=== PATIENT | female | born 1980 | race Hispanic/Latino ===

== ENCOUNTER 2018-11-27 06:09 | Emergency (ER) | payer SELFPAY ==
[2018-11-27 07:15] LABS: #Eosinphils 0.1 thou/uL (0.0-0.7); #Lymphocytes 1.9 thou/uL (1.20-3.40); #Monocytes 0.3 thou/uL (0.11-0.59); #Neutrophils 4.1 thou/uL (1.40-6.50); %Basophils 0.4 % (0.0-1.0); %Lymphocytes 29.3 % (21.0-51.0); %Neutrophils 64.2 % (42.0-75.0); Hemoglobin 13.7 g/dL (12.0-16.0); Mean Corpuscular HGB CONC 32.8 g/dL (32.0-36.0); Mean Corpuscular Hemoglobin 27.4 pg (27.0-31.0); Mean Corpuscular Volume 83.7 fL (78.0-98.0); Mean Platelet Volume 7.1 fL (7.4-10.4); Platelet Count 325 thou/uL (130-400); RBC Distribution Width 11.7 % (11.5-14.5); Red Blood Cell (RBC) Count 4.98 mill/uL (4.20-5.40); White Blood Cell (WBC) Count 6.3 thou/uL (4.8-10.8)
[2018-11-27 07:18] LABS: Bilirubin Negative (Negative); Blood, Urine Trace (Negative); Clarity CLEAR (Clear); Glucose, Urine (Dipstick) Negative (Negative); Leukocyte Negative (Negative); Nitrite Negative (Negative); Protein, Urine (Dipstick) Negative (Neg-Trace); Specific Gravity, Urine 1.004 (1.002-1.036); Urobilinogen 0.2 mg/dL (0.2-1.0)
[2018-11-27 07:20] LABS: Bacteria/HPF None Seen HPF (None Seen); Hyaline Casts/LPF 0-3 HYALINE CAST LPF (0-3 Hyaline); Pathc Cast-AUWi Flag 0.14 (0-2.49); Pregnancy Test - Urine (BHCG) Negative (Negative); Pregu Control Background? CLEAR/WHITE (CLR/WHITE); Pregu Control Bar Appear? YES (CONTROL BAR); RBC/HPF 0-3 HPF (0-3); Specific Gravity 1.004 (1.002-1.036); Squamous Epithelial 0-3 HPF (0-3); WBC/HPF None Seen HPF (0-3)
[2018-11-27 07:39] LABS: ALT (SGPT) 32 U/L (8-55); AST (SGOT) 27 U/L (5-34); Alkaline Phosphatase 73 U/L (40-150); Anion Gap 13 mmol/L (10-20); BUN (Urea Nitrogen) 5 mg/dL (7.0-18.7); Bilirubin, Total 0.5 mg/dL (0.2-1.2); Calc. Creatinine Clearance 0 mL/min (70-130); Calcium 10.5 mg/dL (7.8-10.44); Carbon Dioxide 26 mmol/L (22-29); Chloride 103 mmol/L (98-107); Estimated GFR-MDRD 85; Globulin 3.8 g/dL (2.4-3.5); Glucose 92 mg/dL (70-105); Lipase 23 U/L (8-78); Potassium 3.6 mmol/L (3.5-5.1); Protein, Total 8.8 g/dL (6.0-8.3); Sodium 138 mmol/L (136-145)
[2018-11-27] MEDS ORDERED: Dicyclomine 20 MG TAB ONE (08:42)
[2018-11-27] MEDS ORDERED: Ketorolac Tromethamine 30 MG/ML VIAL ONE (08:43)
[2018-11-27] MEDS ORDERED: Ondansetron PF 4 MG/2 ML Vial ONE (08:43)
--- NOTE | 2018-11-27 10:38 | CT ---
CT OF THE ABDOMEN AND PELVIS WITH IV CONTRAST: Date: 11/27/18 INDICATION: Right lower quadrant abdominal pain for 1 month, worsened last night. FINDINGS: Small calcified granuloma seen within the right lower lobe. There is fatty infiltration of the liver. The pancreas, adrenal glands, and spleen appear within normal limits. Kidneys are unremarkable appear ing. No free fluid or lymphadenopathy is evident. The appendix is in the right lower quadrant and has a normal appearance. It measures 5.0 mm. There ar e small appendicoliths seen within the appendix measuring 3.0 mm, 4.0 mm, and 3.0 mm in size. No drai nable fluid collection is evident. The bladder, rectum, and perirectal soft tissues are unremarkable. No free fluid is evident. There is scattered diverticula involving the colon. Small bowel is normal appearing. No definite acute osseous abnormality is evident. IMPRESSION: 1. Normal appendix. Small appendicoliths present. 2. Fatty liver. 3. Colonic diverticulosis. POS: [facility]
[2018-11-27] MEDS ORDERED: ISOVUE-370 76%-LOCM 1 ML ONE (16:33)
== END 2018-11-27 11:20 | disposition home or self-care (01) ==
LOC: ERS 06:09
DX: N94.6 Dysmenorrhea, unspecified (principal)
CPT/HCPCS: 36415; 74177; 80053; 81003; 81015; 81025; 83690; 85025; 96361; 96374; 96375; J1885; J2405; Q9966

== ENCOUNTER 2018-11-29 14:51 | Emergency (ER) | payer SELFPAY ==
[2018-11-29 15:37] LABS: #Basophils 0.1 thou/uL (0.0-0.2); #Eosinphils 0.1 thou/uL (0.0-0.7); #Lymphocytes 2.9 thou/uL (1.20-3.40); #Monocytes 0.5 thou/uL (0.11-0.59); #Neutrophils 4.3 thou/uL (1.40-6.50); %Basophils 0.9 % (0.0-1.0); %Lymphocytes 37.3 % (21.0-51.0); %Neutrophils 54.8 % (42.0-75.0); Hemoglobin 12.6 g/dL (12.0-16.0); Mean Corpuscular HGB CONC 32.8 g/dL (32.0-36.0); Mean Corpuscular Hemoglobin 27.8 pg (27.0-31.0); Mean Corpuscular Volume 84.7 fL (78.0-98.0); Mean Platelet Volume 7.3 fL (7.4-10.4); Platelet Count 310 thou/uL (130-400); RBC Distribution Width 11.9 % (11.5-14.5); Red Blood Cell (RBC) Count 4.55 mill/uL (4.20-5.40); White Blood Cell (WBC) Count 7.9 thou/uL (4.8-10.8)
[2018-11-29 15:56] LABS: ALT (SGPT) 37 U/L (8-55); AST (SGOT) 32 U/L (5-34); Albumin 4.6 g/dL (3.5-5.0); Alkaline Phosphatase 67 U/L (40-150); Anion Gap 15 mmol/L (10-20); BUN (Urea Nitrogen) 6 mg/dL (7.0-18.7); Bilirubin, Total 0.2 mg/dL (0.2-1.2); CK (CPK) 63 U/L (29-168); Calc. Creatinine Clearance 0 mL/min (70-130); Calcium 9.7 mg/dL (7.8-10.44); Carbon Dioxide 23 mmol/L (22-29); Chloride 105 mmol/L (98-107); Estimated GFR-MDRD Greater than 90; Globulin 3.4 g/dL (2.4-3.5); Glucose 100 mg/dL (70-105); Lipase 29 U/L (8-78); Potassium 3.6 mmol/L (3.5-5.1); Sodium 139 mmol/L (136-145)
--- NOTE | 2018-11-29 16:48 | ULT ---
PELVIC ULTRASOUND: HISTORY: Pelvic pain. COMPARISON: None. CORRELATION: Abdomen and pelvis CT from 11/27/2018. TECHNIQUE: Transabdominal and endovaginal imaging of the pelvis is performed. The left ovary was interrogated w ith casillas-scale, color-flow, Doppler imaging, and spectral wave-form analysis. FINDINGS: The uterus is identified, without myometrial masses. The uterus measures 9.5 x 5.0 x 5.4 cm. The en dometrium has a homogeneous echotexture with a diameter of 0.5 cm. Multiple nabothian cysts are note d. The largest nabothian cyst is 1.1 x 0.8 x 1.0 cm. The right ovary is not appreciated. No obvious masses or fluid in the right adnexa. There is a 1.3 x 1.5 x 1.2 cm hypoechoic focus in the left ovary, likely representing a slightly comp blayne follicle. Overall, the left ovary measures 2.1 x 2.7 x 2.1 cm. There is free fluid. On ovarian Doppler, there is vascular flow to the left ovary. IMPRESSION: Unremarkable pelvic ultrasound. Of note, the right ovary is not appreciated. POS: [facility]
[2018-11-29] MEDS ORDERED: Ondansetron PF 4 MG/2 ML Vial ONE (16:49)
[2018-11-29] MEDS ORDERED: Morphine 4 MG/ML VIAL ONE (17:34)
[2018-11-29] MEDS ORDERED: EPINEPHrine 1 MG/ML AMP ONE (17:44)
[2018-11-29] MEDS ORDERED: diphenhydrAMINE 50 MG/ML VIAL ONE (17:44)
[2018-11-29] MEDS ORDERED: methylPREDNISolone Sod Succ/PF 125 MG/2 ML VIAL ONE (17:44)
[2018-11-29] MEDS ORDERED: Famotidine/PF 20 mg/2ml Vial ONE (17:44)
[2018-11-29 18:05] LABS: Bilirubin Negative (Negative); Blood, Urine Moderate (Negative); Clarity CLEAR (Clear); Glucose, Urine (Dipstick) Negative (Negative); Leukocyte Negative (Negative); Nitrite Negative (Negative); Protein, Urine (Dipstick) Negative (Neg-Trace); Specific Gravity, Urine 1.005 (1.002-1.036); Urobilinogen 0.2 mg/dL (0.2-1.0); pH, Urine 6.5 (5.0-9.0)
[2018-11-29 18:06] LABS: Pregnancy Test - Urine (BHCG) Negative (Negative); Pregu Control Background? CLEAR/WHITE (CLR/WHITE); Pregu Control Bar Appear? YES (CONTROL BAR); Specific Gravity 1.005 (1.002-1.036)
[2018-11-29 18:07] LABS: Bacteria/HPF None Seen HPF (None Seen); Hyaline Casts/LPF 0-3 HYALINE CAST LPF (0-3 Hyaline); Pathc Cast-AUWi Flag 0.29 (0-2.49); Squamous Epithelial 0-3 HPF (0-3); WBC/HPF None Seen HPF (0-3)
[2018-11-29] MEDS ORDERED: Ketorolac Tromethamine 30 MG/ML VIAL ONE (19:12)
[2018-11-29] MEDS ORDERED: traMADol HCl 50 MG TAB ONE (22:17)
== END 2018-11-29 22:57 | disposition home or self-care (01) ==
LOC: ERS 14:51
DX: R10.31 Right lower quadrant pain (principal); R10.32 Left lower quadrant pain
CPT/HCPCS: 36415; 76856; 80053; 81003; 81015; 81025; 82550; 83690; 85025; 94760; 96361; 96372; 96374; 96375; 96376; J0171; J1200; J1885; J2270; J2405; J2930; S0028